=== PATIENT | female | born 1935 | race Caucasian/White ===

== ENCOUNTER 2017-02-13 09:19 | Emergency (ER) | payer OTHER ==
[~2017-02-13] VITALS: Ht 157.5 cm; Wt 48.5 kg
--- NOTE | 2017-02-13 09:20 | NUR ---
LAYLA FROM [facility]: AGITED, PSYCHOTIC, AA0X2, PERIODS OF CONFUSION, NAD NOTED, VSS, WAITING FOR MD OSBORN.
[2017-02-13] MEDS ORDERED: CALC-718 PO (09:39)
[2017-02-13] MEDS ORDERED: QUET25TA PO (09:39)
[2017-02-13] MEDS ORDERED: AMLO5TAB2 PO (09:39)
[2017-02-13] MEDS ORDERED: FLUT1DIS3 IH (09:39)
[2017-02-13] MEDS ORDERED: GUAI100S11 PO (09:39)
[2017-02-13] MEDS ORDERED: LORA0.5T PO (09:39)
[2017-02-13] MEDS ORDERED: LOSA100T15 PO (09:39)
[2017-02-13] MEDS ORDERED: TIOT18CA3 IH (09:39)
[2017-02-13] MEDS ORDERED: LACT1CAP72 PO (09:39)
[2017-02-13] MEDS ORDERED: CLON0.1T PO (09:39)
[2017-02-13] MEDS ORDERED: IPRA3AMP IH (09:39)
[2017-02-13] MEDS ORDERED: PANT40TA4 PO (09:39)
--- NOTE | 2017-02-13 09:41 | NUR ---
INFORMED SHWETA, FOR CRISIS NURSE FOR EVAL
[2017-02-13] MEDS ORDERED: AMLODIPINE BESYLATE 5 MG TABLET ONE (09:48)
[2017-02-13] MEDS ORDERED: AMLODIPINE BESYLATE 5 MG TABLET PO ONE (10:00)
[2017-02-13 10:14] LABS: BASOPHILS # (AUTO) 0.1 /CMM (0.0-0.2); BASOPHILS % (AUTO) 1.9 % (0.0-2.0); EOSINOPHILS % (AUTO) 0.3 % (0.0-6.0); HEMATOCRIT 40 % (33-45); LYMPHOCYTES # (AUTO) 0.9 /CMM (0.8-4.8); LYMPHOCYTES % (AUTO) 18.4 % (20.0-44.0); MEAN CORPUSCULAR HEMOGLOBIN 31 PG (26.0-33.0); MEAN CORPUSCULAR HGB CONC 33 g/dl (31.0-36.0); MEAN CORPUSCULAR VOLUME 94 fL (82-100); MONOCYTES # (AUTO) 0.3 /CMM (0.1-1.30); MONOCYTES % (AUTO) 6.9 % (2.0-12.0); NEUTROPHILS # (AUTO) 3.5 /CMM (1.8-8.9); NEUTROPHILS % (AUTO) 72.5 % (43.0-81.0); PLATELET COUNT (AUTO) 367 /CMM (150-450); RDW COEFFICIENT OF VARIATION 13.9 (11.5-15.0); RED BLOOD CELL COUNT(AUTO) 4.22 MIL/uL (4.0-5.2); WHITE BLOOD COUNT (AUTO) 4.8 K/uL (4.3-11.0)
[2017-02-13 10:26] LABS: CALCIUM, SERUM 9.1 mg/dL (8.5-10.1); CARBON DIOXIDE 30 mmol/L (21-32); CHLORIDE 107 mmol/L (98-107); CREATININE 1.1 mg/dL (0.6-1.3); GLUCOSE 98 mg/dL (74-106); POTASSIUM 4.2 mmol/L (3.5-5.1); SODIUM SERUM 143 mmol/L (136-145); UREA NITROGEN, BLOOD 30 mg/dL (7-18)
--- NOTE | 2017-02-13 11:13 | NUR ---
URINE SENT TO LAB
[2017-02-13 11:20] LABS: APPEARANCE,URINE Clear (CLEAR); BILIRUBIN,URINE Negative (NEGATIVE); BLOOD, URINE Trace-intact Ery/uL (NEGATIVE); COLOR,URINE Yellow (YELLOW); KETONES,URINE Trace (NEGATIVE); LEUKOCYTE ESTERASE ,URINE Negative (NEGATIVE); NITRITE, URINE Negative (NEGATIVE); PH,URINE 6.5 (5.0-8.0); PROTEIN,URINE Negative (NEGATIVE); UGLUCOSE Negative (NEGATIVE); UROBILINOGEN,URINE 0.2 EU/dL (0.2)
[2017-02-13 11:37] LABS: BACTERIA,URINE Rare /HPF (None Seen); SQUAMOUS EPITHELIAL CELL,UR Few /HPF (None Seen); WBC,URINE 0-2 /HPF (0-3)
[2017-02-13] MEDS ORDERED: QUETIAPINE FUMARATE 25 MG TABLET ONE (11:49)
[2017-02-13] MEDS ORDERED: LOSARTAN POTASSIUM 25 MG TABLET ONE (11:50)
[2017-02-13] MEDS ORDERED: CLONIDINE HCL 0.1 MG TABLET ONE (11:50)
--- NOTE | 2017-02-13 11:56 | NUR ---
SPOKE WITH LOREN LEDEZMA [facility] TO SET UP S TRANSPORT TO [facility] TRIP#[id number] ETA 10 MINUTES.
[2017-02-13] MEDS ORDERED: CLONIDINE HCL 0.1 MG TABLET PO ONE (12:00)
[2017-02-13] MEDS ORDERED: LOSARTAN POTASSIUM 25 MG TABLET PO ONE (12:00)
[2017-02-13] MEDS ORDERED: QUETIAPINE FUMARATE 25 MG TABLET PO SCH (12:00)
[2017-02-13 12:11] VITALS: BP 166/96
== END 2017-02-13 12:26 ==
LOC: ER 09:22 → EDBD 09:22 → ER 12:26
DX: R45.1 Restlessness and agitation (principal); F03.90 Unspecified dementia, unspecified severity, without behavioral disturbance, psychotic disturbance, mood disturbance, and anxiety; I10 Essential (primary) hypertension; R41.82 Altered mental status, unspecified
CPT/HCPCS: 36415; 70450; 80048; 81001; 85025; 99285; A4606; 81000-TC; Z7610

== ENCOUNTER 2017-02-14 08:01 | Inpatient (IN) | payer OTHER ==
[~2017-02-14] VITALS: Ht 170.2 cm; Wt 53.2 kg
[~2017-02-14 08:01] MED LIST: AMLO5TAB2 PO; CALC-718 PO; CLON0.1T PO; FLUT1DIS3 IH; GUAI100S11 PO; IPRA3AMP IH; LACT1CAP72 PO; LORA0.5T PO; LOSA100T15 PO; PANT40TA4 PO; QUET25TA PO; TIOT18CA3 IH
--- NOTE | 2017-02-14 08:01 | NUR ---
BIB RA, STAFF COMPLAINS PT IS AGITATED AND KEEPS YELLING, AAO X 1, PERIODS OF CONFUSION, NAD NOTED, VSS, RESP EVEN AND UNLABORED, WAITING FOR MD OSBORN.
[2017-02-14] MEDS ORDERED: HALOPERIDOL LACTATE INJ 5 MG/ML VIAL ONE (08:16)
[2017-02-14 08:30] LABS: EOSINOPHILS % (AUTO) 0.3 % (0.0-6.0); HEMATOCRIT 39 % (33-45); HEMOGLOBIN 12.8 g/dL (11.5-14.8); LYMPHOCYTES # (AUTO) 1.1 /CMM (0.8-4.8); LYMPHOCYTES % (AUTO) 19.9 % (20.0-44.0); MEAN CORPUSCULAR HEMOGLOBIN 32 PG (26.0-33.0); MEAN CORPUSCULAR HGB CONC 33 g/dl (31.0-36.0); MEAN CORPUSCULAR VOLUME 96 fL (82-100); MONOCYTES # (AUTO) 0.1 /CMM (0.1-1.30); MONOCYTES % (AUTO) 2.5 % (2.0-12.0); NEUTROPHILS # (AUTO) 4.4 /CMM (1.8-8.9); NEUTROPHILS % (AUTO) 77.3 % (43.0-81.0); PLATELET COUNT (AUTO) 366 /CMM (150-450); RDW COEFFICIENT OF VARIATION 14.2 (11.5-15.0); RED BLOOD CELL COUNT(AUTO) 4.03 MIL/uL (4.0-5.2); WHITE BLOOD COUNT (AUTO) 5.6 K/uL (4.3-11.0)
[2017-02-14] MEDS ORDERED: HALOPERIDOL LACTATE INJ 5 MG/ML VIAL IM ONE (08:30)
[2017-02-14 08:40] LABS: CALCIUM, SERUM 9.4 mg/dL (8.5-10.1); CARBON DIOXIDE 29 mmol/L (21-32); CHLORIDE 105 mmol/L (98-107); CREATININE 1.2 mg/dL (0.6-1.3); GLUCOSE 98 mg/dL (74-106); SODIUM SERUM 145 mmol/L (136-145); UREA NITROGEN, BLOOD 28 mg/dL (7-18)
[2017-02-14 08:41] LABS: ALCOHOL, BLOOD < 3 mg/dL (0-0)
--- NOTE | 2017-02-14 09:45 | NUR ---
SHWETA, CRISIS NURSE AT
[2017-02-14] MEDS ORDERED: LORAZEPAM INJ 2 MG/ML VIAL ONE (09:56)
[2017-02-14] MEDS ORDERED: LORAZEPAM INJ 2 MG/ML VIAL IM ONE (10:00)
--- NOTE | 2017-02-14 10:00 | NUR ---
ATIVAN 1 MG GIVEN, 1 MG GIVEN WASTED, WITNESSED BY XAVIER WILLOUGHBY.
--- NOTE | 2017-02-14 11:22 | NUR ---
Patient is resting comfortably in bed with eyes closed. Easily aroused. VSS
--- NOTE | 2017-02-14 12:40 | NUR ---
Patient is resting comfortably in bed with eyes closed. Easily aroused. VSS
[2017-02-14] MEDS ORDERED: MAGNESIUM HYDROXIDE 30 ML UDC PO PRN (14:30)
[2017-02-14] MEDS ORDERED: ACETAMINOPHEN 325 MG TABLET PO PRN (14:30)
[2017-02-14] MEDS ORDERED: LORAZEPAM 0.5 MG TABLET PO PRN (14:30)
[2017-02-14] MEDS ORDERED: MAG HYDROX/AL HYDROX/SIMETH 30 ML UDC PO PRN (14:30)
--- NOTE | 2017-02-14 14:30 | NUR ---
GPS/RN RECEIVED PT FROM ER VIA NIRALI. PT IS PN [id number] FOR GD AND DTO. [facility]AFF, YELLING SCREAMING AND VERBALLY ABUSIVE.ADMITTED UNDER DR LIN AND DR HARDWICK . ADMITTING ORDERS RECEIVED AND CARRIED OUT. ON FACE TO FACE ASSESSMENT NO SI OR HI AT THE TIME OF ADMISSION. REFUSED TO SIGN ADMITTING PAPERWORK/FORMS. REFUSED FULL BODY CHECK ASSESSMENT. PT WAS CHECKED NO CONTRABAND/NONE FOUND.
[2017-02-14 14:50] VITALS: BP 152/91
[2017-02-14 15:42] VITALS: BP 151/91
[2017-02-14] MEDS ORDERED: CLONIDINE HCL 0.1 MG TABLET PO PRN (17:30)
[2017-02-14] MEDS ORDERED: Medication Not On Formulary EA (Ipratropium/Albuterol Sulfate (Duoneb 2.5-0.5 Mg/3 Ml So IH PRN (17:30)
[2017-02-14] MEDS ORDERED: GUAIFENESIN 300 MG/15 ML UDC PO PRN (17:30)
[2017-02-14] MEDS: LACTOBACILLUS RHAMNOSUS GG 1 EACH CAP.SPRINK PO SCH (17:49)
[2017-02-14] MEDS ORDERED: IPRATROPIUM NEB FS 0.5 MG/2.5 ML AMPUL.NEB NEB PRN (18:00)
[2017-02-14] MEDS: ALBUTEROL FS 2.5 MG/0.5 ML VIAL.NEB NEB PRN (20:45)
[2017-02-14] MEDS: IPRATROPIUM NEB FS 0.5 MG/2.5 ML AMPUL.NEB NEB SCH (20:45)
[2017-02-14] MEDS: ZOLPIDEM TARTRATE 5 MG TABLET PO PRN (20:47)
--- NOTE | 2017-02-14 20:47 | NUR ---
GPS RN NOTES: PATIENT AWAKE, ALERT AND ORIENTED x2, PATIENT COMPLAINED UNABLE TO SLEEP. PATIENT IS REQUESTING AMBIEN. VITAL SIGN STABLE AT THIS TIME. AMBIEN 5MG PO GIVEN ORDERED. TOLERATED WELL. WILL CONTINUE TO ASSESS PATIENT AND MONITOR HOUR OF SLEEP.
[2017-02-14 20:55] VITALS: BP 134/85
[2017-02-15] MEDS: ALBUTEROL FS 2.5 MG/0.5 ML VIAL.NEB NEB PRN ×4 (02:24→19:58)
[2017-02-15] MEDS: IPRATROPIUM NEB FS 0.5 MG/2.5 ML AMPUL.NEB NEB SCH ×4 (02:24→19:58)
[2017-02-15 08:00] VITALS: BP 140/96
[2017-02-15] MEDS: LACTOBACILLUS RHAMNOSUS GG 1 EACH CAP.SPRINK PO SCH ×2 (08:18→16:39)
[2017-02-15] MEDS: AMLODIPINE BESYLATE 5 MG TABLET PO SCH (08:19)
[2017-02-15] MEDS: LOSARTAN POTASSIUM 50 MG TABLET PO SCH (08:19)
[2017-02-15] MEDS: PANTOPRAZOLE 40 MG TABLET.DR PO SCH (08:19)
[2017-02-15] MEDS: FLUTICASONE/VILANTEROL 1 EACH BLST.W.DEV IH SCH (08:35)
[2017-02-15] MEDS ORDERED: VITAMIN D3 PO SCH (09:00)
[2017-02-15] MEDS ORDERED: FLUTICASONE/SALMETEROL DISKUS IH SCH (09:00)
[2017-02-15] MEDS ORDERED: TIOTROPIUM BROMIDE 6 CAP/BOX CAP.W.DEV IH SCH (09:00)
[2017-02-15] MEDS ORDERED: CALCIUM PHOSPHATE PO SCH (09:00)
[2017-02-15 09:40] LABS: CHOLESTEROL 239 mg/dL (<200); HDL CHOLESTEROL 105 mg/dL (40-60); LDL 123 mg/dL (0-99); TRIGLYCERIDES 32 mg/dL (30-150)
[2017-02-15 09:43] LABS: ALANINE AMINOTRANSFERASE 23 U/L (12-78); ALBUMIN 3.8 g/dL (3.4-5.0); ALKALINE PHOSPHATASE 59 U/L (46-116); ASPARTATE AMINOTRANSFERASE 31 U/L (15-37); BILIRUBIN,TOTAL 0.6 mg/dL (0.2-1.0); CALCIUM, SERUM 9.2 mg/dL (8.5-10.1); CARBON DIOXIDE 31 mmol/L (21-32); CHLORIDE 105 mmol/L (98-107); CREATININE 0.9 mg/dL (0.6-1.3); GLUCOSE 164 mg/dL (74-106); POTASSIUM 3.7 mmol/L (3.5-5.1); SODIUM SERUM 144 mmol/L (136-145); TOTAL PROTEIN, SERUM 7.5 g/dL (6.4-8.2); UREA NITROGEN, BLOOD 21 mg/dL (7-18)
--- NOTE | 2017-02-15 15:45 | NUR ---
UR Review: mortar worker faxed clinicals (psych H&P, med H&P, med list, and face sheet) to Jose F geriatric case manager for [place] ( ext. [phone]/ fax:[phone]). mortar worker will follow-up.
[2017-02-15 16:38] VITALS: BP 131/70
[2017-02-15] MEDS: QUETIAPINE FUMARATE 25 MG TABLET PO SCH (16:39)
[2017-02-15 20:27] VITALS: BP 119/68
[2017-02-15] MEDS: DIVALPROEX SODIUM 125 MG CAP.SPRINK PO SCH (21:10)
[2017-02-15] MEDS: ZOLPIDEM TARTRATE 5 MG TABLET PO PRN (21:10)
--- NOTE | 2017-02-15 21:10 | NUR ---
GPS RN NOTES: PATIENT IS A/O X 1. PATIENT UNABLE TO SLEEP . V/S STABLE. AMBIEN 5MG PO GIVEN ORDERED TOLERATED-WELL. WILL CONTINUE TO MONITOR BEHAVIOR AND SAFETY [id number] AND WILL ALSO MONITOR HOURS OF SLEEP.
[2017-02-16] MEDS: IPRATROPIUM NEB FS 0.5 MG/2.5 ML AMPUL.NEB NEB SCH ×4 (01:30→20:37)
[2017-02-16 08:00] VITALS: BP 137/81
[2017-02-16] MEDS: DIVALPROEX SODIUM 125 MG CAP.SPRINK PO SCH ×2 (08:40→21:15)
[2017-02-16] MEDS: PANTOPRAZOLE 40 MG TABLET.DR PO SCH (08:41)
[2017-02-16] MEDS: AMLODIPINE BESYLATE 5 MG TABLET PO SCH (08:41)
[2017-02-16] MEDS: LACTOBACILLUS RHAMNOSUS GG 1 EACH CAP.SPRINK PO SCH ×2 (08:41→16:10)
[2017-02-16] MEDS: QUETIAPINE FUMARATE 25 MG TABLET PO SCH ×2 (08:41→16:10)
[2017-02-16] MEDS: LOSARTAN POTASSIUM 50 MG TABLET PO SCH (08:41)
[2017-02-16] MEDS: FLUTICASONE/VILANTEROL 1 EACH BLST.W.DEV IH SCH (08:44)
--- NOTE | 2017-02-16 09:56 | NUR ---
Initial Discharge Note: Patient resides in an Assisted Living Facility [facility] [address] [place] [address] ([phone]). munitions worker spoke to patient's son Justice Blanco ([phone]) who confirmed that patient resides at [facility] ans would like her to return upon discharge. munitions worker spoke to Aliya at the facility who confirmed that patient can return upon discharge. munitions worker will help form a safe and proper discharge.
[2017-02-16] MEDS: MEMANTINE HCL 5 MG TABLET PO SCH (12:26)
--- NOTE | 2017-02-16 15:40 | NUR ---
UR Update: calender worker helper faxed updated clinicals (psych progress notes and med list) to Jose F keycase assembler for [facility] ( ext. [phone]/ fax:[phone]). calender worker helper will follow-up.
--- NOTE | 2017-02-16 15:41 | NUR ---
UR Update: plate put in worker received a call from [facility] rehabilitation case coordinator Zeeshan. Zeeshan stated that patient is out of their service area and is not their case. Per Zeeshan, he is trying to obtain a tracking number from [employer]/ [employer]. Per Zeeshan, the patient's medical group would be authorizing the hospital stay. plate put in worker informed coordinator integrated marketing Nena Arriaga ext. [phone]. plate put in worker will follow-up.
[2017-02-16 15:47] VITALS: BP 150/92
--- NOTE | 2017-02-16 16:04 | NUR ---
alteration worker spoke to patient's son Justo Blanco ([phone]) to inform him that patient will be discharged tomorrow. Justo was agreeable with the discharge plan.
--- NOTE | 2017-02-16 16:06 | NUR ---
youth accommodation support worker [facility] [address] [place] [address] ([phone]) and informed her that patient will be returning to the facility tomorrow.
[2017-02-16 20:15] VITALS: BP 132/77
[2017-02-16] MEDS ORDERED: DONEPEZIL 5 MG TABLET PO SCH (22:00)
[2017-02-17] MEDS: IPRATROPIUM NEB FS 0.5 MG/2.5 ML AMPUL.NEB NEB SCH ×2 (01:30→07:35)
[2017-02-17] MEDS: PANTOPRAZOLE 40 MG TABLET.DR PO SCH (08:01)
[2017-02-17] MEDS: LACTOBACILLUS RHAMNOSUS GG 1 EACH CAP.SPRINK PO SCH (08:01)
[2017-02-17] MEDS: QUETIAPINE FUMARATE 25 MG TABLET PO SCH (08:01)
[2017-02-17] MEDS: AMLODIPINE BESYLATE 5 MG TABLET PO SCH (08:01)
[2017-02-17] MEDS: FLUTICASONE/VILANTEROL 1 EACH BLST.W.DEV IH SCH (08:02)
[2017-02-17] MEDS: DIVALPROEX SODIUM 125 MG CAP.SPRINK PO SCH (08:02)
[2017-02-17] MEDS: LOSARTAN POTASSIUM 50 MG TABLET PO SCH (08:02)
[2017-02-17 08:21] VITALS: BP 129/71
[2017-02-17] MEDS: MEMANTINE HCL 5 MG TABLET PO SCH (08:24)
--- NOTE | 2017-02-17 08:33 | NUR ---
Discharge Note [facility] [address] [address] [place] [address] ([phone]) via transportation arranged by social science research assistant through [facility]. Patients son Justo Blanco ([phone]) has been informed and is in agreement with the discharge plan. Patient will follow up with her superintendent cemetery Dr. Robison [address] [place] [phone] on February 22 at 10am. Patient does not have a psychiatrist and a referral was given to the [facility] [address] [facility] . Please note that was unable to obtain a list of psychiatrists that were contracted by [facility]. According to Zeeshan from [facility], patient was out of the service area. Patient is not a smoker and does not abuse substances or alcohol.
--- NOTE | 2017-02-17 13:00 | NUR ---
GPS IMPROVEMENT RN NOTE: PATIENT DISCHARGE BACK TO ASSISTED LIVING FACILITY [address] [address] PATIENT DC VIA [employer] TRANSPORTATION. DR LIN DC PT DR HARDWICK NOTIFIED AND AGREED FOR DISCHARGE. PT IN STABLE CONDITION NO S/S DISTRESS NOTED VSS WNL, PT SKIN INTACT AND CLEAN , EXIT CARE DONE PRINTED PT REFUSED TO SIGN DISCHARGE PAPERS. ALL BELONGINGS RETURNED TO PATIENT . Patient will be discharged back to her Assisted Living Facility [address] [place] [address] ([phone]) via transportation arranged by oncology social work through [employer]. Patients son Justo Blanco ([phone]) has been informed and is in agreement with the discharge plan.
== END 2017-02-17 13:00 | DRG 885 ==
LOC: ER 08:07 → GPS 14:01
PROVIDERS: ADMIT Psychiatry & Neurology Psychiatry; ATTEND Internal Medicine
DX: F29 Unspecified psychosis not due to a substance or known physiological condition (principal); F02.81 Dementia in other diseases classified elsewhere, unspecified severity, with behavioral disturbance; G93.40 Encephalopathy, unspecified; G30.9 Alzheimer's disease, unspecified; I10 Essential (primary) hypertension; K21.9 Gastro-esophageal reflux disease without esophagitis; Z79.899 Other long term (current) drug therapy
CPT/HCPCS: 36415; 80048-TC; 80053-TC; 80061-TC; 80164-TC; 84425; 84443-TC; 85025-TC; 87081-TC; A4606; G0480; J1630; J2060; Z7610